=== PATIENT | female | born 1990 | race Caucasian/White ===

== ENCOUNTER 2021-07-11 08:58 | Outpatient (CLI) | payer BC ==
[2021-07-11 18:10] LABS: SARS-CoV-2 PCR by NAA Not Detected (NotDetected)
== END 2021-07-11 08:59 | disposition home or self-care (01) ==
LOC: CSHLAB 08:58
PROVIDERS: ATTEND Obstetrics & Gynecology
DX: Z20.822 Contact with and (suspected) exposure to COVID-19 (principal)
CPT/HCPCS: U0003; U0005

== ENCOUNTER 2021-07-13 08:50 | Inpatient (IN) | payer BC ==
[~2021-07-13 08:50] MED LIST: Bupivacaine 0.25% HCL 30 ML VIAL ONE; ePHEDrine Sulfate 50 MG/10 ML VIAL ONE
[2021-07-13] MEDS ORDERED: Docusate 100 MG CAP PO PRN (08:58)
[2021-07-13] MEDS ORDERED: Ondansetron PF 4 MG/2 ML Vial IVP PRN ×3 (08:58→17:47)
[2021-07-13] MEDS ORDERED: Ibuprofen 800 MG TAB PO PRN (08:58)
[2021-07-13] MEDS ORDERED: Butorphanol Tartrate 1 MG/ML VIAL SLOW IVP PRN (08:58)
[2021-07-13] MEDS ORDERED: HYDROcodone/Acetaminophen 5/325 mg Tablet PO PRN ×4 (08:58→17:47)
[2021-07-13] MEDS ORDERED: hydrALAZINE 20 MG/ML VIAL SLOW IVP PRN ×2 (08:58→17:47)
[2021-07-13] MEDS ORDERED: Diphenoxylate HCl/Atropine Tablet PO PRN ×2 (08:58)
[2021-07-13] MEDS ORDERED: Lidocaine 1% (PF) 30 ML VIAL SC PRN (08:58)
[2021-07-13] MEDS ORDERED: Misoprostol 200 MCG TAB PR PRN (08:58)
[2021-07-13] MEDS ORDERED: Acetaminophen 500 MG TAB PO PRN (08:58)
[2021-07-13] MEDS ORDERED: Promethazine HCl 25 MG/ML VIAL IM PRN ×2 (08:58→13:56)
[2021-07-13] MEDS ORDERED: NS w/ Oxytocin 30 units 500 ML IVPB SCH (09:00)
[2021-07-13] MEDS ORDERED: NS w/ Oxytocin 30 units 500 ML IV SCH ×3 (09:00→18:00)
[2021-07-13 09:38] VITALS: BMI 43.2
[2021-07-13] MEDS: Lactated Ringer's 1,000 ML IV SCH ×2 (10:13→12:57)
[2021-07-13 10:44] LABS: Hemoglobin 12.5 g/dL (12.0-15.5); Mean Corpuscular Hemoglobin 28.7 pg (27.0-33.0); Mean Corpuscular Volume 84.6 fl (81.6-98.3); Mean Platelet Volume 9.6 fl (7.4-10.4); Platelet Count 182 10x3/uL (150-450); RBC Distribution Width 11.9 % (11.5-14.5); Red Blood Cell (RBC) Count 4.35 10x6/uL (3.90-5.03); White Blood Cell (WBC) Count 11.1 10x3/uL (3.5-10.5)
[2021-07-13 11:17] LABS: Syphilis Antibody Nonreactive (Nonreactive); Syphilis Antibody Index 0.03 S/CO (<1.00 Non-Reactive)
[2021-07-13 11:19] LABS: HIV (1/2) Antibody/Antigen Non-Reactive (NonReactive); HIV 1/2 INDEX 0.08 S/CO (<1.00); Hep B Surf Ag Non-Reactive S/CO (NonReactive)
[2021-07-13 12:07] LABS: HBSAg Index 0.16 S/CO (0-0.99)
[2021-07-13] MEDS ORDERED: Fentanyl 2 mcg/Bup 0.1% Cadd 100 ML ONE (12:49)
[2021-07-13] MEDS ORDERED: Naloxone HCl 0.4 mg/ml Vial IVP PRN ×2 (13:56)
[2021-07-13] MEDS ORDERED: ePHEDrine Sulfate 50 MG/10 ML VIAL SLOW IVP PRN (13:56)
[2021-07-13] MEDS ORDERED: diphenhydrAMINE 50 MG/ML VIAL IVP PRN (13:56)
[2021-07-13] MEDS ORDERED: Hydrocerin (Eucerin) Cream 120 gm Jar TOP PRN (13:56)
[2021-07-13] MEDS ORDERED: Lactated Ringer's 500 ML IV PRN (13:56)
[2021-07-13] MEDS ORDERED: Acetaminophen 325 MG TAB PO PRN (13:56)
[2021-07-13] MEDS ORDERED: Communication Order-Pharmacy FS SCH (14:00)
[2021-07-13] MEDS ORDERED: Fentanyl 2 mcg/Bupivacaine 0.1% Cassette 100 ML EPIDURAL SCH (14:00)
[2021-07-13] MEDS ORDERED: Preparation H Ointment 28 GM TUBE PR PRN (17:47)
[2021-07-13] MEDS ORDERED: Bisacodyl 10 MG SUPP PR PRN (17:47)
[2021-07-13] MEDS ORDERED: Lanolin Ointment 7 GM TUBE TOP PRN (17:47)
[2021-07-13] MEDS ORDERED: Benzocaine-Menthol 82.5 ML CAN TOP PRN (17:47)
[2021-07-13] MEDS ORDERED: diphenhydrAMINE 25 MG CAP PO PRN (17:47)
[2021-07-13] MEDS ORDERED: Zolpidem Tartrate 5 MG TAB PO PRN (17:47)
[2021-07-13] MEDS ORDERED: Misoprostol 200 MCG TAB VAG PRN (17:47)
[2021-07-13] MEDS ORDERED: Milk Of Magnesia 30 ML UDCUP PO PRN (17:47)
[2021-07-13] MEDS: Ibuprofen 800 MG TAB PO SCH (21:29)
[2021-07-13] MEDS: Docusate 100 MG CAP PO SCH (21:29)
[2021-07-14] MEDS: Ibuprofen 800 MG TAB PO SCH ×3 (05:25→21:20)
[2021-07-14] MEDS: Docusate 100 MG CAP PO SCH ×2 (08:39→21:20)
[2021-07-14] MEDS: Prenatal Vitamin 1 TAB PO SCH (08:39)
[2021-07-14] MEDS: Ferrous Sulfate 325 MG TAB PO SCH (08:44)
[2021-07-14] MEDS ORDERED: Boostrix 0.5 ML (Tdap) VIAL IM ONE (17:47)
[2021-07-15] MEDS: Ibuprofen 800 MG TAB PO SCH (05:04)
[2021-07-15 07:44] VITALS: BP 119/75; TEMP 97.7
[2021-07-15] MEDS: Ferrous Sulfate 325 MG TAB PO SCH (08:41)
[2021-07-15] MEDS: Prenatal Vitamin 1 TAB PO SCH (08:41)
[2021-07-15] MEDS: Docusate 100 MG CAP PO SCH (08:41)
== END 2021-07-15 12:45 | disposition home or self-care (01) | DRG 807 ==
LOC: CSHLD 08:50 → CSHPP 21:03
PROVIDERS: ADMIT Obstetrics & Gynecology; ATTEND Obstetrics & Gynecology
PROC: 10E0XZZ Delivery of Products of Conception, External Approach (ICD-10-PCS; principal; 2021-07-13)
PROC: 10907ZC Drainage of Amniotic Fluid, Therapeutic from Products of Conception, Via Natural or Artificial Opening (ICD-10-PCS; 2021-07-13)
PROC: 3E0P7VZ Introduction of Hormone into Female Reproductive, Via Natural or Artificial Opening (ICD-10-PCS; 2021-07-13)
PROC: 3E033VJ Introduction of Other Hormone into Peripheral Vein, Percutaneous Approach (ICD-10-PCS; 2021-07-13)
DX: O80 Encounter for full-term uncomplicated delivery (principal); Z37.0 Single live birth; Z3A.39 39 weeks gestation of pregnancy; Z20.822 Contact with and (suspected) exposure to COVID-19
CPT/HCPCS: 36415; 51702; 85027; 86780; 86850; 86900; 86901; 87340; 87389; J2590; J7120; S0020; U0003; U0005